=== PATIENT | female | born 1945 | race Caucasian/White ===

== ENCOUNTER 2017-11-06 07:14 | Outpatient (CLI) | payer MEDICARE ==
--- NOTE | 2017-11-13 12:52 | PFT ---
PATIENT HISTORY: HEIGHT: 64 IN WEIGHT: 180 SMOKER: NO HOW LON YRS PACKS PER DAY 1.5 PRODUCTIVE COUGH: LUNG DISEASE: PHYSICIAN INTERPRETATION FINAL REPORT: Registered Nurse Renal comments patient and good effort and cooperation FVC 1.99 (71%), FEV1 1.27 (65%), FEV1/FVC 0.68. TLC 4.05 (85%), RV 1.85 (95%). Diffusion 6.30 (36%). There is a reduction in the FEV1 and the FVC, consistent with an obstructive profile. There is a near significant improvement in the FEV1 following administration of bronchodilator. Expiratory limb of the flow volume loop is nonspecifically irregular, demonstrating a double hump. The inspiratory limb of the flow volume loop is perfectly normal. TLC and RV fall within the normal limits. Diffusion capacity is severely impaired. IMPRESSION: These pulmonary function studies are most consistent with moderate obstructive lung disease with near significant reversibility, and severe reduction in gas exchange. Registered Nurse Renal: ADE Airborne Operations Manager: ADE PETTY
== END 2017-11-06 07:15 | disposition home or self-care (01) ==
LOC: CP 07:14
PROVIDERS: ATTEND Family Medicine
DX: J45.909 Unspecified asthma, uncomplicated (principal)
CPT/HCPCS: 94060; 94727; 94729

== ENCOUNTER 2018-01-25 11:25 | Outpatient (CLI) | payer MEDICARE | END 2018-01-25 11:26 | disposition home or self-care (01) | LOC: BICMAMMO 11:25 | PROVIDERS: ATTEND Family Medicine | DX: Z12.31 Encounter for screening mammogram for malignant neoplasm of breast (principal) | CPT/HCPCS: 77063; 77067 ==

== ENCOUNTER 2018-05-26 08:20 | Emergency (ER) | payer MEDICARE ==
[2018-05-26] MEDS ORDERED: traMADol HCl 50 MG TAB ONE (09:38)
[2018-05-26] MEDS ORDERED: Ketorolac Tromethamine 60 MG/2 ML VIAL ONE (09:38)
--- NOTE | 2018-05-26 10:49 | RAD ---
RIGHT HIP 2 VIEWS: HISTORY: Right hip pain. FINDINGS: There are arthritic changes of the hip. There is spurring along the lateral margin of the acetabulum . There are no signs of fracture or dislocation. IMPRESSION: Mild to moderate arthritic changes of the right hip. POS: SILVESTRE
--- NOTE | 2018-05-26 10:50 | RAD ---
AP PELVIS: HISTORY: Right hip pain. FINDINGS: There are some arthritic changes of both hips and the lower lumbar spine. The pelvic ring is intact without evidence of fracture. IMPRESSION: No evidence of acute injury. POS: SILVESTRE
== END 2018-05-26 11:53 | disposition home or self-care (01) ==
LOC: ERS 08:20
DX: M54.31 Sciatica, right side (principal); E78.5 Hyperlipidemia, unspecified; I10 Essential (primary) hypertension; Z79.82 Long term (current) use of aspirin; Z79.899 Other long term (current) drug therapy
CPT/HCPCS: 72170; 96372; J1885

== ENCOUNTER 2018-06-17 10:22 | Outpatient (CLI) | payer MEDICARE ==
--- NOTE | 2018-06-17 13:48 | MRI ---
MRI LUMBAR SPINE PERFORMED WITHOUT CONTRAST ENHANCEMENT: Date: 06/17/18 HISTORY: Back pain and right leg pain. FINDINGS: The vertebral bodies are normal in height. Disc spaces all appear fairly well preserved. There are so me mild disc desiccation changes at L2-3, L3-4, and L4-5. Vertebral body hemangioma of L1 incidentall y noted. There is no significant periaortic adenopathy. The visualized portions of the kidneys appear unremark able. T12-L1: Unremarkable. L1-2: Unremarkable. L2-3: Mild facet and ligamentous hypertrophic change without canal or foraminal stenosis. L3-4: There is a right superior disc extrusion which is at the level of the right foramen. This coul d potentially impress on the exiting right L3 nerve root. There are degenerative facet changes also p resent. L4-5: Degenerative facet and ligamentous hypertrophic changes are seen. No significant canal or fora barney stenosis. L5-S1: Degenerative facet changes without canal or foraminal stenosis. IMPRESSION: Small right superior disc extrusion at the L3-4 level. This is at the level of the right L3 foramen. POS: SILVESTRE
== END 2018-06-17 10:23 | disposition home or self-care (01) ==
LOC: BICMRI 10:22
PROVIDERS: ATTEND Family Medicine
DX: M51.16 Intervertebral disc disorders with radiculopathy, lumbar region (principal); M25.551 Pain in right hip
CPT/HCPCS: 72148

== ENCOUNTER 2018-09-23 01:41 | Outpatient (CLI) | payer MEDICARE ==
[2018-09-23 10:33] LABS: Anion Gap 17 mmol/L (10-20); BUN (Urea Nitrogen) 16 mg/dL (9.8-20.1); Calc. Creatinine Clearance 0 mL/min (70-130); Calcium 9.5 mg/dL (7.8-10.44); Carbon Dioxide 22 mmol/L (23-31); Chloride 101 mmol/L (98-107); Estimated GFR-MDRD 64; Glucose 197 mg/dL (83-110); Potassium 3.6 mmol/L (3.5-5.1); Sodium 136 mmol/L (136-145)
--- NOTE | 2018-09-24 15:54 | EKG ---
Test Reason : Blood Pressure : / mmHG Vent. Rate : 103 BPM Atrial Rate : 103 BPM P-R Int : 154 ms QRS Dur : 082 ms QT Int : 312 ms P-R-T Axes : 063 020 020 degrees QTc Int : 408 ms Sinus tachycardia Otherwise normal ECG Confirmed by DIVINA PEDERSEN ([id number]) on 09/24/2018 3:54:36 PM Referred By: NARCISO Confirmed By:DIVINA PEDERSEN
== END 2018-09-23 01:42 | disposition home or self-care (01) ==
LOC: LABBT 01:41
PROVIDERS: ATTEND Neurological Surgery
DX: Z01.818 Encounter for other preprocedural examination (principal); M51.16 Intervertebral disc disorders with radiculopathy, lumbar region
CPT/HCPCS: 80048; 93005; 93010

== ENCOUNTER 2018-09-25 05:28 | Day surgery (SDC) | payer MEDICARE ==
[2018-09-23 09:25] VITALS: BMI 31.7
--- NOTE | 2018-09-24 22:15 | HP ---
HISTORY OF PRESENT ILLNESS: Ms. Betancourt is a very pleasant 73-year-old woman, referred to us today by Dr. Arnett for evaluation of right-sided back, anterior thigh and knee pain that began back in April 2018, which fits either an L3 or partial radiculopathy. She has had one epidural steroid injection at this level, which provided roughly 7 weeks of 70% to 80% relief. She has an MRI from [place] that reveals really a great looking lumbar spine with the exception of a right-sided disk extrusion at L3-L4 that protrudes in the right neuroforamen at this level, as well as compresses the descending L4 nerve root. She hopes to discuss surgical intervention if possible. PAST MEDICAL HISTORY: Significant for hypercholesterolemia, chronic pain, seasonal allergies, osteoarthritis, hypertension, osteoporosis. PAST SURGICAL HISTORY: Tonsillectomy, appendectomy, cholecystectomy, partial hysterectomy, oophorectomy, carotid endarterectomy, and knee replacement. CURRENT MEDICATIONS: 1. Hydrochlorothiazide. 2. Metformin. 3. Atorvastatin. 4. Gabapentin. 5. Lisinopril. ALLERGIES: PERCODAN. PHYSICAL EXAMINATION: GENERAL: The patient is alert and oriented x3. Gait is normal. No ataxia. Lower extremity exam is normal. Negative straight leg raise bilaterally. Negative Conor's test bilaterally. ASSESSMENT: Lumbar disk herniation and radiculopathy. PLAN: Dr. Luu met with the patient, reviewed imaging, and advocated for right L3 diskectomy. He explained to the patient the risks, benefits, and alternatives of the procedure. The patient expressed understanding and elected to move forward with surgery as discussed. I do believe that the patient is mentally competent and capable of making medical decisions for herself. We will move forward with the surgery as planned. Job ID: [id number]
[2018-09-25] MEDS ORDERED: Thrombin 5000 UNITS/5 ML VIAL ONE (06:21)
[2018-09-25] MEDS ORDERED: Bupivacaine HCl 0.5%/Epinephrine 1:200,000/PF 30 ml Vial ONE (06:21)
[2018-09-25] MEDS ORDERED: Fentanyl 100 MCG/2 ML VIAL ONE ×2 (06:47→08:38)
--- NOTE | 2018-09-25 11:31 | OP ---
DATE OF PROCEDURE: 09/25/2018 LEAD BURNER: Fransisco Manzano PA-C INDICATION: Pain. DIAGNOSIS: Right L3 radiculopathy. PROCEDURES PERFORMED: Right L3 diskectomy. ANESTHESIA: General. DESCRIPTION OF PROCEDURE: The patient was brought into the operating room and placed under general anesthesia. She was flipped from the supine to prone position on the operating room table. A linear incision was planned over the L3 segment. After prepping and draping and after an appropriate preoperative pause, the incision was created. The soft tissues were swept away from midline on the right. A self-retaining retractor was placed. A C-arm image was obtained to confirm the appropriate level. After confirming appropriate level with C-arm fluoroscopy, high-speed cutting drill bit as well as 2, 3, and 4 mm Kerrisons were used to perform a hemilaminectomy along L3 on the right side. This encompassed the medial aspect of the facet joint. I did identify and recover extruded disk fragment that had moved superiorly at the level of the foramen. At the end of the procedure, the L3 nerve root on the right side was well decompressed. The wound was then irrigated. Hemostasis was maintained throughout. The wound was then closed in anatomic layers and a pressure dressing was applied. There were no known procedural complications. Job ID: [id number]
[2018-09-25] MEDS ORDERED: Ketorolac Tromethamine 30 MG/ML VIAL ONE (13:54)
[2018-09-25] MEDS ORDERED: Rocuronium Bromide 10 MG/ML (10ML VIAL) ONE (13:54)
[2018-09-25] MEDS ORDERED: PROPOFOL 200 MG/20 ML VIAL ONE (13:54)
[2018-09-25] MEDS ORDERED: Dexamethasone 20 MG/5 ML VIAL ONE (13:54)
[2018-09-25] MEDS ORDERED: Glycopyrrolate 0.2 MG/ML 5 ML SYRINGE ONE (13:54)
[2018-09-25] MEDS ORDERED: Ondansetron PF 4 MG/2 ML Vial ONE (13:54)
[2018-09-25] MEDS ORDERED: Esmolol 100 MG/10 ML VIAL ONE (13:54)
[2018-09-25] MEDS ORDERED: ePHEDrine 50 MG/ML VIAL ONE (13:54)
[2018-09-25] MEDS ORDERED: PHENYLEPHRINE-NS 100 MCG/ML 10 ML SYRINGE ONE (13:54)
[2018-09-25] MEDS ORDERED: Lidocaine 1% PF 5 ML VIAL ONE (13:54)
== END 2018-09-25 11:00 | disposition home or self-care (01) ==
LOC: SDC 05:28
PROVIDERS: ATTEND Neurological Surgery
PROC: 01NB0ZZ Release Lumbar Nerve, Open Approach (ICD-10-PCS; principal; 2018-09-25)
PROC: 0SB20ZZ Excision of Lumbar Vertebral Disc, Open Approach (ICD-10-PCS; 2018-09-25)
DX: M51.16 Intervertebral disc disorders with radiculopathy, lumbar region (principal); M81.0 Age-related osteoporosis without current pathological fracture; M17.12 Unilateral primary osteoarthritis, left knee; E78.00 Pure hypercholesterolemia, unspecified; M19.90 Unspecified osteoarthritis, unspecified site; I10 Essential (primary) hypertension; J30.2 Other seasonal allergic rhinitis; Z87.891 Personal history of nicotine dependence; Z79.84 Long term (current) use of oral hypoglycemic drugs; Z79.899 Other long term (current) drug therapy; Z88.5 Allergy status to narcotic agent; Z88.8 Allergy status to other drugs, medicaments and biological substances
CPT/HCPCS: 76000; J0670; J1100; J1885; J2001; J2405; J2704; J3010; J3490

== ENCOUNTER 2019-01-28 09:30 | Outpatient (CLI) | payer MEDICARE ==
--- NOTE | 2019-01-28 10:33 | MMO ---
Bilateral MAMMO Bilat Screen [facility]. CLINICAL HISTORY: Patient is 73 years old and is seen for screening. The patient has no family history of breast cancer. The patient has no personal history of cancer. VIEWS: The views performed were: bilateral craniocaudal with tomosynthesis and bilateral mediolateral oblique with tomosynthesis. FILMS COMPARED: The present examination has been compared to prior imaging studies performed at [facility] on 08/06/2002, 11/15/2010, 11/17/2010 and 01/25/2018. MAMMOGRAM FINDINGS: There are scattered fibroglandular densities. There are stable benign appearing calcifications seen in both breasts. There are no suspicious masses, suspicious calcifications, or new areas of architectural distortion. IMPRESSION: THERE IS NO MAMMOGRAPHIC EVIDENCE OF MALIGNANCY. A ROUTINE FOLLOW-UP MAMMOGRAM IN 1 YEAR IS RECOMMENDED. THE RESULTS OF THIS EXAM WERE SENT TO THE PATIENT. ACR BI-RADS Category 2 - Benign finding MAMMOGRAPHY NOTE: 1. A negative mammogram report should not delay a biopsy if a dominant of clinically suspicious mass is present. 2. Approximately 10% to 15% of breast cancers are not detected by mammography. 3. Adenosis and dense breasts may obscure an underlying neoplasm.
== END 2019-01-28 09:31 | disposition home or self-care (01) ==
LOC: BICMAMMO 09:30
PROVIDERS: ATTEND Family Medicine
DX: Z12.31 Encounter for screening mammogram for malignant neoplasm of breast (principal)
CPT/HCPCS: 77063; 77067

== ENCOUNTER 2019-04-13 11:26 | Inpatient (IN) | payer MEDICARE ==
[2019-04-13] MEDS ORDERED: Ondansetron PF 4 MG/2 ML Vial ONE (12:00)
[2019-04-13] MEDS ORDERED: Fentanyl 100 MCG/2 ML VIAL ONE (12:00)
[2019-04-13] MEDS ORDERED: Lidocaine 1% PF 5 ML VIAL ONE (12:00)
--- NOTE | 2019-04-13 12:27 | CT ---
Exam: CT brain PROVIDED CLINICAL HISTORY: Trauma COMPARISON: 07/07/2014 FINDINGS: The ventricular system is normal in size and morphology. No evidence for intracranial hemorrhage or mass effect. The extracranial soft tissues and osseous structures demonstrate no evidence for an acute abnormality. Chronic microvascular ischemic changes involving the cerebral white matter are red emonstrated. IMPRESSION: No evidence for intracranial hemorrhage or mass effect.
--- NOTE | 2019-04-13 12:34 | CT ---
EXAM: CT cervical spine PROVIDED CLINICAL HISTORY: Trauma. Patient fell approximately 5 to 6 ft and landed on back. Patient hit head. TECHNIQUE: Contiguous axial CT images are obtained through the cervical spine from the skull base to the C7-T1 l evel. Sagittal and coronal reformatted images are provided. COMPARISON: None FINDINGS: Degenerative changes are seen in the cervical spine with prominent osteophytes anteriorly at the C4-5 , C5-6, and C6-7 levels. Prominent facet hypertrophic changes are seen on the left at the C3-4 level which in combination with uncinate process hypertrophy on the left results in moderate to sever e left-sided neural foraminal narrowing. There is moderate right-sided neural foraminal narrowing at this level. Disc osteophyte complex at the C5-6 level results in mild right and moderate left-side d neural foraminal narrowing with narrowing of the ventral subarachnoid space and likely flattening of the anterior aspect of the spinal cord. Disc osteophyte complex at the C6-7 level eccentric to the left results in narrowing of the ventral subarachnoid space and effacement of the left anterolateral aspect of the spinal cord. No fracture or subluxation is seen involving the cervical spine. No prevertebral soft tissue swelling apparent. Limited visualized lung apices are clear. A calcification is seen in the left lobe of thyroid gland. No thyroid nodule is seen. Vascular calcifications are seen in the carotid arteries. Surgical clips are seen in the left aspect of the neck. IMPRESSION: Degenerative changes in the cervical spine without evidence of a fracture or subluxation.
--- NOTE | 2019-04-13 12:52 | RAD ---
EXAM: XR Shoulder Lt 3 View STANDARD PROVIDED CLINICAL HISTORY: Pain FINDINGS: There is no evidence for fracture or other acute osseous abnormality. Alignment appears anatomic. Vera nt spaces appear preserved. IMPRESSION: No evidence for an acute osseous abnormality. If there is persistent clinical concern, conservative m anagement and follow-up imaging advised.
[2019-04-13] MEDS ORDERED: ISOVUE-370 76%-LOCM 1 ML ONE (12:53)
--- NOTE | 2019-04-13 12:55 | CT ---
EXAM: CT of the chest with IV contrast CT of the abdomen and pelvis with IV contrast HISTORY: Trauma. Patient fell off a ladder from a height of 5 to 6 ft. Injury after fall. COMPARISON: CT abdomen and pelvis on 05/14/2015. FINDINGS: CT CHEST: Mediastinum: Heart is normal in size without focal cardiac abnormality. No hilar or mediastinal lymph adenopathy. A tiny subcentimeter hypodense nodule is seen in the right lobe of the thyroid gland. There is small amount of heterogeneous material in the right aspect of the upper thoracic trachea pro bably related to secretions. Vessels: Vascular calcifications are seen in the coronary arteries and involving the thoracic aorta. There are no findings to suggest an aortic injury. Lungs: There is dependent atelectasis bilaterally. No consolidation or pulmonary nodule is identified . Pleural space: No pneumothorax or pleural effusion. Osseous structures: There is a mildly angulated and fracture involving the lateral left sec ond rib with nondisplaced fracture involving the lateral left sixth rib. There is slight cortical irregularities involving the lateral left third through fifth ribs which also likely represent subtle nondisplaced fractures. Remote right lateral rib fractures are present. An oblique and mildly as well as slightly comminuted fracture is seen involving the central and left aspect of th e manubrium. Subcutaneous soft tissue swelling is seen anterior to the sternoclavicular joint. A tiny amount of fluid is seen in a substernal location at the level of the manubrial fracture. However , a well-defined fat plane is seen between the fluid and the adjacent vascular structures. Chest wall: Subcutaneous soft tissue swelling anterior to the left sternoclavicular joint. CT ABDOMEN/PELVIS: Liver: Within normal limits. Gallbladder: Not visualized and likely surgically absent. This is a stable finding. Spleen: Within normal limits. Pancreas: Within normal limits. Adrenal glands: Within normal limits. Kidneys: Within normal limits. Urinary bladder: Within normal limits. Vessels: Vascular calcifications are seen in the abdominal aorta involving the iliac arteries. There are no findings to suggest an aortic injury. Bowel: Colonic diverticulosis is noted. Loops of small bowel are normal in caliber. Pelvis: No focal mass or abnormality. Reproductive organs: Evidence of hysterectomy. Peritoneum: No free air or free fluid. Retroperitoneum: No lymphadenopathy. Osseous structures: No fracture is appreciated. There is no dislocation involving either hip. THORACIC AND LUMBAR SPINE: No fracture or subluxation is seen. No paravertebral soft tissue swelling is present. A right laminot milagro defect is seen at the L3-4 level. Mild right convex curvature of the thoracic spine is noted. Mild degenerative changes are seen in the spine. No fracture or subluxation is visualized involving t he thoracic IMPRESSION: 1. Fracture involving the left manubrium with adjacent small amount of hemorrhage and stranding. Ther e are no findings to suggest an aortic injury. 2. Left-sided rib fractures with mild angulation and separation of fracture fragments involving the l eft second rib. 3. No acute findings are seen in the abdomen or pelvis. 4. Tiny subcentimeter hypodense nodule right lobe of thyroid gland further characterized on this stud y. 5. Above findings discussed Dr. Cutler in the emergency department on 04/13/2019 at 1251 hours.
[2019-04-13] MEDS ORDERED: Ketorolac Tromethamine 30 MG/ML VIAL ONE (13:20)
[2019-04-13] MEDS ORDERED: Dextrose 5% in Water 1,000 ML IV PRN (13:27)
[2019-04-13] MEDS ORDERED: Dextrose 50% Abboject 50 ML SYRINGE SLOW IVP PRN (13:27)
[2019-04-13] MEDS ORDERED: Insulin Regular 300 UNITS/3 ML VIAL SC PRN (13:27)
[2019-04-13] MEDS ORDERED: Rib Fracture Protocol PO SCH (13:30)
[2019-04-13] MEDS ORDERED: Pantoprazole 40 MG VIAL IVP SCH (13:30)
[2019-04-13] MEDS ORDERED: Sodium Chloride 0.9% (PF) 10 ML VIAL FS PRN (13:34)
[2019-04-13 13:41] LABS: #Eosinphils 0.1 thou/uL (0.0-0.7); #Lymphocytes 1.3 thou/uL (1.20-3.40); #Monocytes 0.5 thou/uL (0.11-0.59); #Neutrophils 12.2 thou/uL (1.40-6.50); %Basophils 0.1 % (0.0-1.0); %Eosinophils 0.8 % (0.0-10.0); %Monocytes 3.3 % (0.0-10.0); %Neutrophils 86.7 % (42.0-75.0); Hemoglobin 11.6 g/dL (12.0-16.0); Mean Corpuscular HGB CONC 35.4 g/dL (32.0-36.0); Mean Corpuscular Hemoglobin 30.2 pg (27.0-31.0); Mean Corpuscular Volume 85.4 fL (78.0-98.0); Mean Platelet Volume 7.1 fL (7.4-10.4); Platelet Count 231 thou/uL (130-400); Red Blood Cell (RBC) Count 3.83 mill/uL (4.20-5.40)
[2019-04-13 13:42] LABS: PTT 25.1 SEC (22.9-36.1); Prothrombin Time 13.5 SEC (12.0-14.7)
[2019-04-13] MEDS ORDERED: Morphine 4 MG/ML VIAL ONE (13:42)
[2019-04-13] MEDS ORDERED: Cyclobenzaprine 10 MG TAB PO PRN (13:45)
[2019-04-13 13:58] LABS: ALT (SGPT) 11 U/L (8-55); AST (SGOT) 17 U/L (5-34); Albumin 4.3 g/dL (3.4-4.8); Alkaline Phosphatase 80 U/L (40-150); Anion Gap 13 mmol/L (10-20); BUN (Urea Nitrogen) 12 mg/dL (9.8-20.1); Bilirubin, Total 0.6 mg/dL (0.2-1.2); Calc. Creatinine Clearance 0 mL/min (70-130); Carbon Dioxide 25 mmol/L (23-31); Chloride 103 mmol/L (98-107); Estimated GFR-MDRD 60; Globulin 2.7 g/dL (2.4-3.5); Glucose 140 mg/dL (83-110); Potassium 4.5 mmol/L (3.5-5.1); Sodium 136 mmol/L (136-145)
[2019-04-13] MEDS ORDERED: Acetaminophen 1,000 MG in Premix Bag 1 BAG IVPB SCH (14:00)
--- NOTE | 2019-04-13 14:23 | HP ---
HISTORY OF PRESENT ILLNESS: Ms. Betancourt is a 74-year-old female, coming to evaluation of left chest wall pain after a fall. The patient reports falling from 5 to 6 feet, landed on her back on the left side, hit her head on the ground. She reports no loss of consciousness at that time. Upon arrival in the ER, the patient's GCS is 15, complained of left chest pain, vital signs stable. PAST MEDICAL HISTORY: The patient has a past medical history of hypertension, hyperlipidemia, and COPD with a rescue inhaler. PAST SURGICAL HISTORY: Appendectomy, left knee replacement, hysterectomy, gallbladder, tonsillectomy. SOCIAL HISTORY: The patient lives at home with family. Denies alcohol. Denies drug use. The patient quit smoking 15 years ago. CURRENT MEDICATION: lisinopril 10 mg daily aspirin 365mg daily Atorvastatin 10 mg daily Hydrochlorothiazide 12.5 mg daily REVIEW OF SYSTEMS: Noncontributory except per HPI. PHYSICAL EXAMINATION: GENERAL: The patient is lying down in bed with moderate acute distress due to pain of the left rib cage. VITAL SIGNS: Heart rate 99, blood pressure 110/72, respiratory rate 16, temperature 98, O2 saturation 94% on room air. Pain is 10/10. HEENT: Left posterior scalp laceration, underwent repair by Dr. Cutler and stopped bleeding. Pupils 3 mm, round, reactive to light. Extraocular muscle normal. Face atraumatic, no bruising. NECK: Trachea midline. No tender to palpation. No bruising. CHEST: Left chest is little tender to touch. No obvious bruising. Diminished rising due to pain. LUNGS: Clear bilaterally. HEART: Regular rate and rhythm. ABDOMEN: Symmetric. No deformity. No tender to palpation. No bruising. PELVIS: Stable. EXTREMITIES: Neurovascularly intact x4. NEUROLOGIC: No focal neurological deficits. ASSESSMENT: 1. Status post mechanical fall from the height of 5 to 6 feet. 2. Left rib fracture, second and sixth rib fracture. 3. History of hypertension, chronic obstructive pulmonary disease, and hyperlipidemia. PLAN: The patient will be admitted to surgical floor. Initiate on pain control. The patient will be put on rib fracture protocol p.o. The patient will be initiated on DVT and gastritis prophylaxis. The patient will be working with PT/OT tomorrow. The patient will be put on trauma bowel regiment. Resume all home medications. Job ID: [id number] [facility]
[2019-04-13] MEDS ORDERED: Gabapentin 100 MG CAP PO SCH (15:00)
[2019-04-13 15:05] LABS: Bilirubin Negative (Negative); Blood, Urine Negative (Negative); Clarity Clear (Clear); Glucose, Urine (Dipstick) Normal (Negative); Leukocyte Negative Leu/uL (Negative); Nitrite Negative (Negative); Protein, Urine (Dipstick) Negative (Neg-Trace); Urobilinogen Normal mg/dL (Less than 2)
[2019-04-13 16:56] VITALS: BMI 32.8
[2019-04-13] MEDS: Ibuprofen 600 MG TAB PO SCH ×2 (17:11→22:40)
[2019-04-13] MEDS ORDERED: Ketorolac Tromethamine 30 MG/ML VIAL IVP SCH (18:00)
[2019-04-13] MEDS: traMADol HCl 50 MG TAB PO SCH (18:28)
[2019-04-13] MEDS: Acetaminophen 500 MG TAB PO SCH (20:05)
[2019-04-13] MEDS: Senokot S 8.6-50 MG TAB PO SCH (20:06)
[2019-04-13] MEDS: Gabapentin 300 MG CAP PO SCH (20:06)
[2019-04-13] MEDS: Atorvastatin Calcium 10 MG TAB PO SCH (20:06)
[2019-04-13] MEDS ORDERED: Lisinopril 10 MG TAB PO SCH (21:00)
[2019-04-13] MEDS ORDERED: OSTERA PO SCH (21:00)
[2019-04-13] MEDS ORDERED: PATIENT'S HOME MEDICATION PO SCH (21:00)
[2019-04-13] MEDS ORDERED: traMADol HCl 50 MG TAB PO PRN (22:27)
[2019-04-14] MEDS: traMADol HCl 50 MG TAB PO SCH ×5 (00:16→23:11)
[2019-04-14] MEDS: Acetaminophen 500 MG TAB PO SCH ×4 (00:51→20:47)
[2019-04-14] MEDS ORDERED: Sodium Chloride 0.9% 500 ML IV SCH ×2 (04:45→21:00)
[2019-04-14 06:09] LABS: #Eosinphils 0.1 thou/uL (0.0-0.7); #Lymphocytes 1.6 thou/uL (1.20-3.40); #Monocytes 0.5 thou/uL (0.11-0.59); %Basophils 0.6 % (0.0-1.0); %Eosinophils 1.3 % (0.0-10.0); %Monocytes 6.7 % (0.0-10.0); %Neutrophils 69.5 % (42.0-75.0); Hemoglobin 9.8 g/dL (12.0-16.0); Mean Corpuscular HGB CONC 34.4 g/dL (32.0-36.0); Mean Corpuscular Hemoglobin 29.6 pg (27.0-31.0); Mean Corpuscular Volume 85.9 fL (78.0-98.0); Mean Platelet Volume 6.7 fL (7.4-10.4); Platelet Count 184 thou/uL (130-400); RBC Distribution Width 12.9 % (11.5-14.5); White Blood Cell (WBC) Count 7.2 thou/uL (4.8-10.8)
[2019-04-14] MEDS ORDERED: Hydrocortisone Sod Succ/PF 100 mg/2 ml Vial IVP SCH (06:15)
[2019-04-14] MEDS: Sodium Chloride 0.9% 1,000 ML IV SCH ×2 (06:21→20:48)
[2019-04-14 06:31] LABS: Anion Gap 10 mmol/L (10-20); BUN (Urea Nitrogen) 16 mg/dL (9.8-20.1); Calc. Creatinine Clearance 65 mL/min (70-130); Calcium 8.3 mg/dL (7.8-10.44); Carbon Dioxide 27 mmol/L (23-31); Chloride 103 mmol/L (98-107); Estimated GFR-MDRD 54; Glucose 154 mg/dL (83-110); Magnesium 1.8 mg/dL (1.6-2.6); Phosphorus 4.8 mg/dL (2.3-4.7); Potassium 4.3 mmol/L (3.5-5.1); Sodium 136 mmol/L (136-145)
[2019-04-14] MEDS: Ibuprofen 600 MG TAB PO SCH ×3 (07:16→20:48)
[2019-04-14] MEDS ORDERED: Sodium Chloride 0.9% 500 ML IVPB SCH (07:45)
--- NOTE | 2019-04-14 08:30 | RAD ---
CHEST 1 VIEW: HISTORY: Rib fractures. COMPARISON: CT of prior day. FINDINGS: No further displacement of the left-sided rib fractures. Mild atelectasis in the left lung base. No pneumothorax is appreciated. Old left midclavicular fracture. Calcifications of the transverse aorta. Heart size is similar. IMPRESSION: No further displacement of left-sided rib fractures. No significant pneumothorax. POS: CET
[2019-04-14] MEDS: Gabapentin 300 MG CAP PO SCH ×4 (08:43→20:48)
[2019-04-14] MEDS: Senokot S 8.6-50 MG TAB PO SCH ×2 (08:43→20:48)
[2019-04-14] MEDS: Polyethylene Glycol 3350 17 GM Packet PO SCH (08:44)
[2019-04-14] MEDS ORDERED: Enoxaparin Sodium 30 MG/0.3 ML SYRINGE SC SCH (09:00)
[2019-04-14] MEDS ORDERED: Prevnar 13-Val Conj/PF 0.5 ML SYRINGE IM ONE (09:00)
[2019-04-14] MEDS ORDERED: Hydrochlorothiazide 25 MG TAB PO SCH (09:00)
[2019-04-14] MEDS: Hydrochlorothiazide 25 MG TAB PO SCH (09:47)
[2019-04-14] MEDS: Hydrocortisone Sod Succ/PF 100 mg/2 ml Vial IVP SCH ×3 (13:18→23:10)
--- NOTE | 2019-04-14 14:52 | PRG ---
DATE OF SERVICE: 04/14/2019 SUBJECTIVE: Ms. Betancourt is 74 years old female, who came in after 5 to 6 feet fall, landed on her back on the left side. She sustained left rib fracture from 2 through 6. The patient also has a history of hypertension, COPD, and hyperlipidemia. Last night, the patient had a blood pressure drop in the range of 80. She got bolus and checked her cortisone level. Her cortisone level was low. She got treated for adrenal insufficiency this morning. Her blood pressure is getting better. She tolerated regular diet. She is able to work with PT/OT and she walked around the floor today. Her spirometry up to 2500. Pain is manageable. OBJECTIVE: GENERAL: The patient is lying down in bed, comfortable with no acute distress. VITAL SIGNS: Temperature 99, heart rate 85, respiratory rate 12, O2 saturation 94% on 2 L of cannula, blood pressure 94/60. LUNGS: Clear bilaterally. HEART: Regular rate and rhythm. ABDOMEN: Soft, nondistended. EXTREMITIES: Neurovascularly intact x4. The patient's range of motion normal x4. NEUROLOGIC: No focal neurology deficits. ASSESSMENT: 1. Status post mechanical fall from 5 to 6 feet. 2. Left rib fracture, 2 through 6. 3. History of hypertension, chronic obstructive pulmonary disease, and hyperlipidemia. PLAN: Plan will be to continue supportive care. Continue pain control. Continue pulmonary toilet. The patient will be working with PT/OT. Anticipate discharge in next 24 to 48 hours. Job ID: [id number]
[2019-04-14] MEDS: Atorvastatin Calcium 10 MG TAB PO SCH (20:48)
[2019-04-14] MEDS ORDERED: Lisinopril 10 MG TAB PO SCH (21:00)
--- NOTE | 2019-04-14 23:21 | RAD ---
Exam: Chest one view HISTORY:New onset atrial fibrillation Comparison: 04/14/2019 at 7:02 AM FINDINGS: Cardiac silhouette: Normal Aorta: Atherosclerosis of the aortic knob Pulmonary vessels: Normal Costophrenic angles: Persistent obscuration of the left hemidiaphragm and blunting of left costophren ic angle LUNGS: No masses or consolidation. Pneumothorax: None Osseous abnormalities: Old left clavicle fracture. Anterior second and posterior third left rib fract ures are noted. IMPRESSION: 1. Redemonstration of left rib fractures. No pneumothorax. 2. Persistent obscuration of the left hemidiaphragm.
--- NOTE | 2019-04-15 00:16 | PRG ---
DATE OF SERVICE: 04/14/2019 SUBJECTIVE: The patient at time of my exam was on the surgical floor. She is status a post fall in which she sustained multiple left-sided rib fractures, specifically ribs 2 through 6. The patient has been doing well today, worked with Physical and Occupational Therapy. She has been able to get in and out of bed unassisted. She is drawing consistently greater than 2000 on her incentive spirometry. During my exam, the nurse was taking her vitals and it was noted that her blood pressure was difficult to obtain and her heart rate was rapid. Further examination showed her heart rate was tachycardic with irregularity. We obtained a 12-lead EKG, which revealed atrial fibrillation with rapid ventricular response. The patient was asymptomatic. She felt no chest discomfort or shortness of breath. No syncopal type symptoms. The patient did inform us that she has periods of this before that her primary care doctor has been aware of. This sounds consistent with paroxysmal atrial fibrillation. OBJECTIVE: VITAL SIGNS: The patient is afebrile. Oxygen saturation is 90% on room air. LUNGS: Clear to auscultation bilaterally with good inspiratory and expiratory effort. HEART: Again is tachy, irregular. ABDOMEN: Soft, nontender with active bowel sounds. EXTREMITIES: Neurovascularly intact x4. ASSESSMENT/PLAN: 1. Status post fall from 5-6 feet. 2. Left ribs 2 through 6 fracture. 3. Atrial fibrillation with rapid ventricular response. 4. History of hypertension. 5. History of chronic obstructive pulmonary disease. 6. History of hyperlipidemia. PLAN: Plan will be to move the patient to the telemetry unit. We will obtain a BNP. We will do a chest x-ray and also do a bladder scan as the patient reportedly has not voided recently. Once the patient moves to the telemetry unit, we will reassess her to see if she requires pharmacological agents to reduce her rate. Job ID: [id number]
[2019-04-15] MEDS: Acetaminophen 500 MG TAB PO SCH ×3 (02:46→14:03)
[2019-04-15 05:10] LABS: #Lymphocytes 1.4 thou/uL (1.20-3.40); #Monocytes 0.5 thou/uL (0.11-0.59); #Neutrophils 7.9 thou/uL (1.40-6.50); %Eosinophils 0.2 % (0.0-10.0); %Lymphocytes 14.4 % (21.0-51.0); %Monocytes 5.2 % (0.0-10.0); %Neutrophils 80.2 % (42.0-75.0); Hemoglobin 9.2 g/dL (12.0-16.0); Mean Corpuscular HGB CONC 34.2 g/dL (32.0-36.0); Mean Corpuscular Hemoglobin 29.8 pg (27.0-31.0); Mean Corpuscular Volume 87.1 fL (78.0-98.0); Platelet Count 186 thou/uL (130-400); Red Blood Cell (RBC) Count 3.09 mill/uL (4.20-5.40); White Blood Cell (WBC) Count 9.8 thou/uL (4.8-10.8)
[2019-04-15] MEDS: traMADol HCl 50 MG TAB PO SCH ×2 (05:11→11:32)
[2019-04-15] MEDS: Ibuprofen 600 MG TAB PO SCH ×2 (05:12→14:04)
[2019-04-15] MEDS: Hydrocortisone Sod Succ/PF 100 mg/2 ml Vial IVP SCH ×2 (05:12→11:33)
[2019-04-15 05:48] LABS: Anion Gap 12 mmol/L (10-20); BUN (Urea Nitrogen) 12 mg/dL (9.8-20.1); Calc. Creatinine Clearance 70 mL/min (70-130); Calcium 8.4 mg/dL (7.8-10.44); Carbon Dioxide 23 mmol/L (23-31); Chloride 107 mmol/L (98-107); Estimated GFR-MDRD 58; Glucose 173 mg/dL (83-110); Magnesium 1.9 mg/dL (1.6-2.6); Phosphorus 3.7 mg/dL (2.3-4.7); Potassium 4.4 mmol/L (3.5-5.1); Sodium 138 mmol/L (136-145)
[2019-04-15] MEDS ORDERED: PHOS-NAK 1 PKT PACK PO SCH (07:15)
[2019-04-15] MEDS ORDERED: Magnesium 2 GM/50 ML 2 GM in Premix Bag 1 BAG IVPB SCH (07:45)
[2019-04-15] MEDS: Polyethylene Glycol 3350 17 GM Packet PO SCH (08:50)
[2019-04-15] MEDS: Gabapentin 300 MG CAP PO SCH ×3 (08:52→16:03)
[2019-04-15] MEDS: Senokot S 8.6-50 MG TAB PO SCH (08:52)
[2019-04-15] MEDS: Hydrochlorothiazide 25 MG TAB PO SCH (08:53)
[2019-04-15] MEDS ORDERED: Enoxaparin Sodium 40 MG/0.4 ML SYRINGE SC SCH (09:00)
[2019-04-15 15:56] VITALS: BP 119/61; TEMP 98.3
--- NOTE | 2019-04-16 01:36 | DIS ---
DATE OF ADMISSION: 04/13/2019 DATE OF DISCHARGE: 04/15/2019 ADMISSION DIAGNOSIS: Mechanical fall from 5 feet, left ribs 2 through 6 fracture. DISCHARGE DIAGNOSES: Mechanical fall from 5 feet, left ribs 2 through 6 fracture; acute adrenal insufficiency. CONSULTING PHYSICIAN: None. PROCEDURES PERFORMED: None. HOSPITAL COURSE: The patient is a 74-year-old female, who presented to the emergency department via EMS after a fall from 5 to 6 feet. She was found to have left-sided ribs 2 through 6 fracture and she was admitted for pain control. She did develop some hypotension and was found to have acute adrenal insufficiency. The patient also had a laceration to her posterior scalp. On day two, the patient developed paroxysmal atrial fibrillation, which resolved on its own. The patient does have a history of paroxysmal atrial fibrillation. Chest x-ray and additional workup were negative. The patient worked with Physical and Occupational Therapy. Pain was well controlled. She was able to ambulate with minimal assistance. She was discharged home with family assistance with followup in 10 days of the chest x-ray and also for suture removal to the scalp. DISCHARGE DISPOSITION: Home. DISCHARGE CONDITION: Satisfactory. PHYSICAL EXAMINATION: VITAL SIGNS: Temperature 98.4, pulse 98, respirations 16, oxygen saturation 91% on room air, and blood pressure 101/58. GENERAL: Well-appearing elderly female, sitting up in bed with no signs of acute distress. PULMONARY: Equal chest rise and fall. Clear breath sounds bilaterally. No signs of acute respiratory distress. The patient is pulling 1500 on her SI. ABDOMEN: Soft, nontender, and nondistended. CARDIAC: Regular rate and rhythm. No murmurs, gallops, or rubs. EXTREMITIES: 2+ pulses in all extremities. No significant swelling noted. Gross motor and sensation are intact. DISCHARGE INSTRUCTIONS: The patient was discharged home. Activity as tolerated with a regular diet. She is to use her incentive spirometer. DISCHARGE MEDICATIONS: Include: 1. Tylenol. 2. Aspirin. 3. Atorvastatin. 4. Vitamin D. 5. Gabapentin. 6. Hydrochlorothiazide. 7. Ibuprofen. 8. Lisinopril. 9. MiraLAX. 10. Tramadol. FOLLOWUP INSTRUCTIONS: The patient is to follow up with Dr. Holden on April 22, 2019, at 2:30 p.m. She will have a chest x-ray and she will also have staple removal. She is also to follow up with her PCP this week for paroxysmal atrial fibrillation. This is merely a summary of the patient's hospitalization. For full details, please see her medical record in its entirety. Job ID: [id number]
== END 2019-04-15 16:17 | disposition home or self-care (01) | DRG 184 ==
LOC: ERS 11:26 → SURG B 13:00 → 2NO 04-14 22:35
PROVIDERS: ADMIT Surgery; ATTEND Surgery
DX: S22.42XA Multiple fractures of ribs, left side, initial encounter for closed fracture (principal); E27.40 Unspecified adrenocortical insufficiency; W17.89XA Other fall from one level to another, initial encounter; I95.9 Hypotension, unspecified; S01.01XA Laceration without foreign body of scalp, initial encounter; Z96.652 Presence of left artificial knee joint; E78.5 Hyperlipidemia, unspecified; I48.0 Paroxysmal atrial fibrillation; J44.9 Chronic obstructive pulmonary disease, unspecified; I10 Essential (primary) hypertension; Z79.01 Long term (current) use of anticoagulants; Z90.49 Acquired absence of other specified parts of digestive tract; Z90.710 Acquired absence of both cervix and uterus
CPT/HCPCS: 12001; 36415; 36416; 70450; 71045; 71260; 72125; 74177; 80048; 80053; 81003; 82533; 83735; 83880; 84100; 85025; 85610; 85730; 93005; 93010; 94640; 96361; 96365; 96375; J0131; J1650; J1720; J1885; J2001; J2270; J2405; J3010; J3475; J7620; Q9966

== ENCOUNTER 2019-04-21 09:51 | Outpatient (CLI) | payer MEDICARE ==
--- NOTE | 2019-04-21 10:11 | RAD ---
EXAM: XR Chest Pa Lat STANDARD PROVIDED CLINICAL HISTORY: Rib fracture COMPARISON: 04/14/2019 FINDINGS: Cardiac and mediastinal silhouette are unchanged in appearance. Development of small amount of left p leural fluid. Prominence of the pulmonary vasculature. Displaced left-sided rib fractures again seen. No evidence for pneumothorax. IMPRESSION: Development of small left pleural fluid. Prominence of the pulmonary vasculature.
== END 2019-04-21 09:52 | disposition home or self-care (01) ==
LOC: BICRAD 09:51
PROVIDERS: ATTEND Physician Assistant
DX: S22.39XA Fracture of one rib, unspecified side, initial encounter for closed fracture (principal)
CPT/HCPCS: 71046

== ENCOUNTER 2019-12-12 12:13 | Outpatient (CLI) | payer MEDICARE, OTHER ==
[~2019-12-12 12:13] MED LIST: Magnevist 469MG/ML 20 ML VIAL ONE
--- NOTE | 2019-12-12 15:27 | MRI ---
MRI OF THE LUMBAR SPINE WITH AND WITHOUT CONTRAST: 12/12/19 INDICATION: History of lumbar radiculopathy and right hip pain that radiates into the right leg for the last six weeks; worsening after a fall three weeks ago. History of lumbar surgery in September 2018. COMPARISON: Prior MR of the lumbar spine without contrast performed at [facility] d ated 06/17/18. CT of the chest, abdomen and pelvis dated 04/13/19. FINDINGS: There has been an interval chronic appearing wedge compression abnormality at T11. This is new from a comparison CT dated 04/13/19. No residual edema is seen on the STIR images within this compression ab normality. There is a stable hemangioma within L1. There is post procedural change of a hemilaminecto my at L3-4. The visualized aspects of the retroperitoneum appear within normal limits. No lymphadenopathy or free fluid is identified. At the L5-S1 level, there is mild facet joint degenerative change but no appreciable central canal or neural foraminal narrowing. At L4-5, there is mild facet joint degenerative change and a broad based bulge that induces stable mi ld bilateral neural foraminal narrowing. At L3-4, there are hemilaminectomy changes. Previously seen right paracentral disc extrusion is no lo nger seen and suspected to have been surgically removed. There is a persistent, asymmetric to the rig ht, broad based disc bulge. There is worsening severe right neural foraminal narrowing from the prior examination. There is persistent mild left neural foraminal narrowing. On the postcontrast images th ere is enhancement of the material filling the inferior aspect of the right neural foramina likely in dicative of some epidural fibrosis along the inferior aspect of the right neural foramina rather than a recurrent disc herniation. At L2-3, there is a broad based bulge but no appreciable central canal or neural foraminal narrowing. At L1-2, there is no appreciable central canal or neural foraminal narrowing. At T12-L1, there is a mild broad based bulge but no appreciable central canal or neural foraminal imelda rowing. Postprocedural images demonstrates some increased epidural enhancement seen involving the right L3-4 neural foraminal as above. No abnormal intrathecal enhancement is demonstrated. There is some pulsati on artifact that projects over the neural foramen on the axial postcontrast series on image 23 of ser ies 10 from the IVC. IMPRESSION: 1. Postprocedural change of a hemilaminectomy at L3-4 with removal of the previously seen right paracentral disc extrusion. There is some low T1 and T2 signal intensity material filling the right L 3-4 neural foramina with enhancement along the inferior aspect of the neural foramina most suspicious for prominent amount of epidural fibrosis. The extent of the fibrosis does fill majority of the neur al foraminal with severe narrowing of the right L3-4 neural foramina. There is persistent mild left n eural foramina narrowing at L3-4 due to the broad based disc bulge and facet degenerative change. 2. Mild bilateral neural foraminal narrowing at L4-5 is stable appearing. 3. Interval change wedge compression abnormality of T11. POS: [facility]
== END 2019-12-12 12:14 | disposition home or self-care (01) ==
LOC: BICMRI 12:13
PROVIDERS: ATTEND Neurological Surgery
DX: M47.26 Other spondylosis with radiculopathy, lumbar region (principal); M51.16 Intervertebral disc disorders with radiculopathy, lumbar region; M48.061 Spinal stenosis, lumbar region without neurogenic claudication; R93.7 Abnormal findings on diagnostic imaging of other parts of musculoskeletal system; G95.29 Other cord compression; Z98.890 Other specified postprocedural states
CPT/HCPCS: 72158; 82565; A9579

== ENCOUNTER 2020-01-23 05:32 | Outpatient (CLI) | payer MEDICARE, OTHER ==
[2020-01-23 12:50] LABS: Anion Gap 15 mmol/L (10-20); BUN (Urea Nitrogen) 19 mg/dL (9.8-20.1); Calc. Creatinine Clearance 0 mL/min (70-130); Carbon Dioxide 24 mmol/L (23-31); Chloride 106 mmol/L (98-107); Estimated GFR-MDRD 47; Glucose 136 mg/dL (83-110); Potassium 4.6 mmol/L (3.5-5.1); Sodium 140 mmol/L (136-145)
[2020-01-24 12:15] LABS: SARS-CoV-2 MS2 Positive; SARS-CoV-2 N Gene Negative; SARS-CoV-2 S Gene Negative; SARS-CoV-2 orf1ab Negative
== END 2020-01-23 05:33 | disposition home or self-care (01) ==
LOC: LABBT 05:32
PROVIDERS: ATTEND Neurological Surgery
DX: Z01.812 Encounter for preprocedural laboratory examination (principal); Z11.59 Encounter for screening for other viral diseases; M54.16 Radiculopathy, lumbar region
CPT/HCPCS: 80048; U0003; 87635

== ENCOUNTER 2020-01-26 06:15 | Day surgery (SDC) | payer MEDICARE ==
[2020-01-20 12:11] VITALS: BMI 30.9
[2020-01-26] MEDS ORDERED: EPINEPHrine 1 MG/ML AMP ONE (06:30)
[2020-01-26] MEDS ORDERED: Thrombin 5000 UNITS/5 ML VIAL ONE (06:30)
[2020-01-26] MEDS ORDERED: Bupivacaine PF 0.5% 30 ML VIAL ONE (06:30)
--- NOTE | 2020-01-26 06:50 | HP ---
HISTORY OF PRESENT ILLNESS: Ms. Betancourt is a 74-year-old woman who is known to us for prior lumbar diskectomy in the beginning of last year. Reports to me that around October of this year, she started to feel a searing pain in the right lower back radiating into the right hip and anterior thigh. She states she initially was evaluated by primary care who started her on gabapentin and [place] as well as started a home exercise program which she is unable to complete secondary to pain. She has x-ray of the right hip, which shows appropriate mild DJD, but nothing that would fit the description of pain. She describes pain and burning right thigh much in a way that it was before surgery last year. She states that the pain became severe enough that she is relying upon a walker and a new MRI at [facility] reveals a right-sided L3 disk that encroaches upon the foramen as well. PHYSICAL EXAMINATION: Deferred secondary to [facility]-19 Telehealth visit. PAST MEDICAL HISTORY: Hypertension, coronary arterial disease, hyperlipidemia, and diabetes. CURRENT MEDICATIONS: 1. Gabapentin. 2. Lisinopril. 3. Hydrochlorothiazide. 4. Januvia. 5. Eliquis. 6. Atorvastatin. 7. Vitamin D. PAST SURGICAL HISTORY: Tonsillectomy, appendectomy, hysterectomy, cholecystectomy, knee replacement on the left, lumbar diskectomy, and left carotid endarterectomy. ALLERGIES: NO KNOWN DRUG ALLERGIES. ASSESSMENT: Lumbar disk herniation with radiculopathy. PLAN: Dr. Luu met with the patient, reviewed her imaging and did right L3 diskectomy. He explained to the patient the risks, benefits, and alternatives to the procedure. The patient expressed understanding and elected to move forward with surgery as discussed. I do believe the patient is mentally competent and capable of making medical decisions for herself. We will move forward with surgery as planned. Job ID: [id number]
[2020-01-26] MEDS ORDERED: Fentanyl 100 MCG/2 ML VIAL ONE (07:17)
[2020-01-26] MEDS ORDERED: Midazolam HCl 2 mg/2 ml Vial ONE (07:17)
[2020-01-26] MEDS ORDERED: Scopolamine 1.5 mg/72 hour Patch ONE (07:35)
[2020-01-26] MEDS ORDERED: Ketamine 50 MG/ML (10ML VIAL) ONE (07:45)
[2020-01-26] MEDS ORDERED: Ondansetron PF 4 MG/2 ML Vial ONE ×3 (09:11→11:43)
--- NOTE | 2020-01-26 09:36 | OP ---
DATE OF PROCEDURE: 01/26/2020 PHYSICAL THERAPY TEACHER: Fransisco Manzano PA-C INDICATION: Pain. DIAGNOSIS: Lumbar radiculopathy. PROCEDURES PERFORMED: Reoperation of right L3 facetectomy, right L3 foraminotomy, right L3 diskectomy. ANESTHESIA: General. DESCRIPTION OF PROCEDURE: The patient was brought into the operating room and placed under general anesthesia. She was flipped from the supine to prone position on the operating room table. A linear incision was planned at the location of a prior incision. After prepping and draping and after an appropriate preoperative pause, the incision was created. The soft tissues were swept right of midline. A self-retaining retractor was placed in the wound for optimal exposure. After confirming the appropriate level with C-arm fluoroscopy, a bone defect was identified at the L3 segment. The laminectomy was extended laterally to encompass most of the facet joint at that level. The L4 pedicle was identified as was the disk and a substantial amount of scar tissue just above the pedicle. Some of the disk material was removed as was some disk material. Some of it was densely adherent to the exiting L3 nerve root and thecal sac. The ligament was identified and further removed in order to decompress the lateral recesses in order to give the L4 nerve root more room. After completing the decompression, the wound was irrigated. Hemostasis was maintained throughout. The wound was then closed in anatomic layers, and a pressure dressing was applied. There were no known procedural complications. Job ID: [id number]
[2020-01-26] MEDS ORDERED: HYDROcodone/Acetaminophen 5/325 mg Tablet ONE (11:26)
[2020-01-26] MEDS ORDERED: PROPOFOL 200 MG/20 ML VIAL ONE (11:43)
[2020-01-26] MEDS ORDERED: Glycopyrrolate 0.2 MG/ML 5 ML SYRINGE ONE (11:43)
[2020-01-26] MEDS ORDERED: Ketorolac Tromethamine 30 MG/ML VIAL ONE (11:43)
[2020-01-26] MEDS ORDERED: Dexamethasone 20 MG/5 ML VIAL ONE (11:43)
[2020-01-26] MEDS ORDERED: Rocuronium Bromide 10 MG/ML (10ML VIAL) ONE (11:43)
[2020-01-26] MEDS ORDERED: PHENYLEPHRINE-NS 100 MCG/ML 10 ML SYRINGE ONE (11:43)
[2020-01-26] MEDS ORDERED: diphenhydrAMINE 50 MG/ML VIAL ONE (11:43)
[2020-01-26] MEDS ORDERED: EPHEDRINE 25 MG/5 ML SYRINGE ONE (11:43)
== END 2020-01-26 12:16 | disposition home or self-care (01) ==
LOC: SDC 06:15
PROVIDERS: ATTEND Neurological Surgery
PROC: 01NB0ZZ Release Lumbar Nerve, Open Approach (ICD-10-PCS; principal; 2020-01-26)
PROC: 0SB20ZZ Excision of Lumbar Vertebral Disc, Open Approach (ICD-10-PCS; 2020-01-26)
DX: M51.16 Intervertebral disc disorders with radiculopathy, lumbar region (principal); E78.5 Hyperlipidemia, unspecified; I10 Essential (primary) hypertension; M16.11 Unilateral primary osteoarthritis, right hip; I25.10 Atherosclerotic heart disease of native coronary artery without angina pectoris; E11.9 Type 2 diabetes mellitus without complications; Z87.891 Personal history of nicotine dependence; Z79.01 Long term (current) use of anticoagulants; Z79.84 Long term (current) use of oral hypoglycemic drugs; Z79.899 Other long term (current) drug therapy; Z88.5 Allergy status to narcotic agent
CPT/HCPCS: 76000; J0171; J0690; J1100; J1200; J1885; J2250; J2405; J2704; J3010; S0020

== ENCOUNTER 2020-01-30 09:00 | Outpatient (CLI) | payer MEDICARE, OTHER ==
--- NOTE | 2020-01-30 10:02 | MMO ---
Bilateral MAMMO Bilat Screen [facility]. CLINICAL HISTORY: Patient is 74 years old and is seen for screening. The patient has no family history of breast cancer. The patient has no personal history of cancer. VIEWS: The views performed were: bilateral craniocaudal with tomosynthesis and bilateral mediolateral oblique with tomosynthesis. FILMS COMPARED: The present examination has been compared to prior imaging studies performed at [facility] on 11/15/2010, 11/17/2010, 01/25/2018 and 01/28/2019. This study has been interpreted with the assistance of computer-aided detection. MAMMOGRAM FINDINGS: There are scattered fibroglandular densities. Benign calcifications are noted bilaterally. There are no suspicious masses, suspicious calcifications, or new areas of architectural distortion. IMPRESSION: THERE IS NO MAMMOGRAPHIC EVIDENCE OF MALIGNANCY. A ROUTINE FOLLOW-UP MAMMOGRAM IN 1 YEAR IS RECOMMENDED. THE RESULTS OF THIS EXAM WERE SENT TO THE PATIENT. ACR BI-RADS Category 2 - Benign finding MAMMOGRAPHY NOTE: 1. A negative mammogram report should not delay a biopsy if a dominant of clinically suspicious mass is present. 2. Approximately 10% to 15% of breast cancers are not detected by mammography. 3. Adenosis and dense breasts may obscure an underlying neoplasm. Reported by: DESTINI YUSUF MD Electonically Signed: [id number]
== END 2020-01-30 09:01 | disposition home or self-care (01) ==
LOC: BICMAMMO 09:00
PROVIDERS: ATTEND Family Medicine
DX: Z12.31 Encounter for screening mammogram for malignant neoplasm of breast (principal)
CPT/HCPCS: 77063; 77067

== ENCOUNTER 2020-04-19 08:10 | Outpatient (CLI) | payer MEDICARE, OTHER ==
[2020-04-19] MEDS ORDERED: Magnevist 469MG/ML 20 ML VIAL ONE (09:02)
--- NOTE | 2020-04-19 10:22 | MRI ---
MRI LUMBAR SPINE WITH AND WITHOUT CONTRAST: DATE: 04/19/2020 HISTORY: 75-year-old female with low back pain at right lumbar radiculopathy. Indeterminate lesions found on CT of 03/19/2020. Further investigation. COMPARISON: 03/19/2020 CT TECHNIQUE: Multiple sequences obtained in axial and sagittal planes, pre and post IV injection of gadolinium-bas ed contrast agent. FINDINGS: There are 5 lumbar-type vertebrae. Vertebral body heights are maintained. Mild disc space narrowing at L2-3. Moderate disc space narrowing at L3-4. No significant disc space n arrowing at other levels. No major spondylolisthesis, and no spondylolysis. No scoliosis. Conus medullaris terminates at L2. T12-L1:Mild disc bulge. No central or significant neural foraminal stenosis. Large hemangioma of bone of L1 vertebral body. L1-2:Minimal disc bulge. Otherwise negative. L2-3:Mild disc bulge. Mild ligamentum flavum thickening. No significant central or significant neural foraminal stenosis. L3-4:Right hemilaminectomy and right facetectomy. There is enhancing soft tissue material filling the laminectomy and facetectomy defect, and extending into the right neural foramen. Although there is no bony neural foraminal stenosis, this enhancing material, representing postsurgical scar or postsur gical granulation tissue, causes moderate to severe right neural foraminal stenosis, surrounding the inferior 180 degrees of the exiting right L3 nerve root, and displacing that nerve root superiorl y within the neural foramen. There has been surgical resection of the right lateral component of the disc. The scar tissue slightly effaces the right lateral edge of the thecal sac. No high-grade th ecal sac stenosis. Moderate left neural foraminal stenosis due to left lateral and far lateral components of disc bulge.. L4-5:Bilateral mild to moderate facet DJD with moderate ligamentum flavum thickening. No high-grade c entral spinal canal stenosis. Mild to moderate right and moderate left neural foraminal stenosis. Minimal disc bulge. There is no specific enhancing lesion that corresponds to the tiny 0.1 cm focal c alcification at the posterior midline edge of the thecal sac on the noncontrast images. It could represent a tiny calcification within the normally enhancing, normal caliber filum terminale. There i s no evidence of meningioma. L5-S1:Mild bilateral facet DJD. No central spinal canal stenosis. Mild bilateral neural foraminal mathieu nosis. IMPRESSION: 1) status post right hemilaminectomy and right facetectomy at L3-4, with postsurgical enhancing scar tissue or postsurgical enhancing granulation tissue, fills the surgical osseous defects, and causes high-grade right neural foraminal stenosis, impinging on the exiting right L3 nerve root. 2) Tiny calcification at the posterior midline aspect of the thecal sac at the L4-5 level is not a me ningioma. It may be a tiny nonspecific calcification of the filum terminale. 3) no high-grade central spinal canal stenosis at any level. 4) some neural foraminal stenosis as described above.
== END 2020-04-19 08:11 | disposition home or self-care (01) ==
LOC: BICMRI 08:10
PROVIDERS: ATTEND Neurological Surgery
DX: M54.16 Radiculopathy, lumbar region (principal); M54.5 Low back pain; M48.061 Spinal stenosis, lumbar region without neurogenic claudication; M48.07 Spinal stenosis, lumbosacral region; Z98.890 Other specified postprocedural states
CPT/HCPCS: 72158; 82565; A9579

== ENCOUNTER 2021-02-01 08:47 | Outpatient (CLI) | payer MEDICARE | END 2021-02-01 08:48 | disposition home or self-care (01) | LOC: BICMAMMO 08:47 | PROVIDERS: ATTEND Family Medicine | DX: Z12.31 Encounter for screening mammogram for malignant neoplasm of breast (principal) | CPT/HCPCS: 77063; 77067 ==

== ENCOUNTER 2022-01-30 14:13 | Outpatient (CLI) | payer MEDICARE | END 2022-01-30 14:14 | disposition home or self-care (01) | LOC: BICMAMMO 14:13 | PROVIDERS: ATTEND Family Medicine | DX: Z12.31 Encounter for screening mammogram for malignant neoplasm of breast (principal) | CPT/HCPCS: 77063; 77067 ==

== ENCOUNTER 2022-11-24 15:15 | Outpatient (CLI) | payer MEDICARE | END 2022-11-24 15:16 | disposition home or self-care (01) | LOC: BICRAD 15:15 | PROVIDERS: ATTEND Family Medicine | DX: M25.512 Pain in left shoulder (principal); M19.012 Primary osteoarthritis, left shoulder ==

== ENCOUNTER 2023-02-15 14:21 | Outpatient (CLI) | payer MEDICARE | END 2023-02-15 14:22 | disposition home or self-care (01) | LOC: BICMAMMO 14:21 | PROVIDERS: ATTEND Family Medicine | DX: Z12.31 Encounter for screening mammogram for malignant neoplasm of breast (principal) | CPT/HCPCS: 77063; 77067 ==

== ENCOUNTER 2023-02-28 13:22 | Outpatient (CLI) | payer MEDICARE | END 2023-02-28 13:23 | disposition home or self-care (01) | LOC: BICMRI 13:22 | PROVIDERS: ATTEND Orthopaedic Surgery | DX: S46.012A Strain of muscle(s) and tendon(s) of the rotator cuff of left shoulder, initial encounter (principal); S43.402A Unspecified sprain of left shoulder joint, initial encounter ==

== ENCOUNTER 2023-08-07 15:51 | Emergency (ER) | payer MEDICARE, OTHER ==
[2023-08-07] MEDS ORDERED: Acetaminophen 325 MG TAB ONE (16:20)
== END 2023-08-07 19:36 | disposition home or self-care (01) ==
LOC: ERS 15:51
DX: S63.501A Unspecified sprain of right wrist, initial encounter (principal); S00.81XA Abrasion of other part of head, initial encounter; I10 Essential (primary) hypertension; E78.5 Hyperlipidemia, unspecified; W17.89XA Other fall from one level to another, initial encounter; Z79.82 Long term (current) use of aspirin; Z79.899 Other long term (current) drug therapy
CPT/HCPCS: 29105

== ENCOUNTER 2023-09-20 11:20 | Outpatient (CLI) | payer MEDICARE | END 2023-09-20 11:21 | disposition home or self-care (01) | LOC: SCSMRI 11:20 | PROVIDERS: ATTEND Nurse Practitioner Family | DX: R42 Dizziness and giddiness (principal); R29.6 Repeated falls; I67.89 Other cerebrovascular disease | CPT/HCPCS: 70551 ==

== ENCOUNTER 2024-02-18 13:36 | Outpatient (CLI) | payer MEDICARE | END 2024-02-18 13:37 | disposition home or self-care (01) | LOC: BICMAMMO 13:36 | PROVIDERS: ATTEND Family Medicine | DX: Z12.31 Encounter for screening mammogram for malignant neoplasm of breast (principal) | CPT/HCPCS: 77063; 77067 ==

== ENCOUNTER 2024-06-10 11:24 | Inpatient (IN) | payer MEDICARE ==
[2024-06-10] MEDS ORDERED: Acetaminophen 325 MG TAB PO PRN (14:19)
[2024-06-10] MEDS ORDERED: Ipratropium/Albuterol 3 ML NEB NEB PRN (14:24)
[2024-06-10] MEDS ORDERED: Dextrose 50% Abboject 50 ML SYRINGE SLOW IVP PRN (14:33)
[2024-06-10] MEDS ORDERED: Dextrose 5% in Water 1,000 ML IV PRN (14:33)
[2024-06-10] MEDS ORDERED: Glucagon 1 MG/ML KIT IM PRN (14:33)
[2024-06-10 14:49] LABS: Hematocrit 25.4 % (36.0-47.0); Hemoglobin 7.6 g/dL (12.0-16.0); Mean Corpuscular HGB CONC 29.9 g/dL (32.0-36.0); Mean Corpuscular Volume 83.6 fL (78.0-98.0); Mean Platelet Volume 9.9 fL (7.4-10.4); Platelet Count 270 10x3/uL (130-400); RBC Distribution Width 15.5 % (11.5-14.5); Red Blood Cell (RBC) Count 3.04 mill/uL (4.20-5.40)
[2024-06-10 15:14] LABS: Troponin I Less than 0.010 ng/mL (< 0.028)
[2024-06-10 15:59] LABS: Iron 12 ug/dL (50-170); Iron Binding Capacity, Total 449 mcg/dL (265-497)
[2024-06-10] MEDS: cefTRIAXone\\ROCEPHIN 1 GM in Sodium Chloride 0.9% 100 ML IVPB SCH (16:30)
[2024-06-10] MEDS: Azithromycin 500 MG in Sodium Chloride 0.9% 250 ML 250 ML IVPB SCH (17:37)
[2024-06-10] MEDS: Ipratropium/Albuterol 3 ML NEB NEB SCH (19:15)
[2024-06-10] MEDS: Pantoprazole 40 MG VIAL IVP SCH (20:05)
[2024-06-10] MEDS: Senokot S 8.6-50 MG TAB PO PRN (20:05)
[2024-06-10] MEDS: Gabapentin 300 MG CAP PO PRN (20:11)
[2024-06-11 04:43] LABS: #Basophils Less than 0.03 10x3/uL (0.0-0.2); #Eosinophils Less than 0.03 10x3/uL (0.0-0.7); %Lymphocytes 7.2 % (21.0-51.0); %Monocytes 5.4 % (0.0-10.0); %Neutrophils 86.8 % (42.0-75.0); Hematocrit 27.8 % (36.0-47.0); Hemoglobin 8.3 g/dL (12.0-16.0); Mean Corpuscular HGB CONC 29.9 g/dL (32.0-36.0); Mean Corpuscular Hemoglobin 25.1 pg (27.0-31.0); Mean Platelet Volume 10.1 fL (7.4-10.4); Platelet Count 284 10x3/uL (130-400); RBC Distribution Width 15.2 % (11.5-14.5); Red Blood Cell (RBC) Count 3.31 mill/uL (4.20-5.40)
[2024-06-11 05:37] LABS: Anion Gap 14 mmol/L (10-20); BUN (Urea Nitrogen) 9 mg/dL (9.8-20.1); Calc. Creatinine Clearance 77 mL/min (70-130); Calcium 8.3 mg/dL (7.8-10.44); Carbon Dioxide 21 mmol/L (23-31); Chloride 107 mmol/L (98-107); Estimated GFR 78; Glucose 164 mg/dL (83-110); Potassium 4.3 mmol/L (3.5-5.1); Sodium 138 mmol/L (136-145)
[2024-06-11] MEDS: Insulin Lispro 100 UNIT/ML 10 ML VIAL SC PRN (06:07)
[2024-06-12 09:07] LABS: #Basophils 0.05 10x3/uL (0.0-0.2); %Basophils 0.6 % (0.0-1.0); %Eosinophils 1.6 % (0.0-10.0); %Lymphocytes 21.1 % (21.0-51.0); %Monocytes 6.5 % (0.0-10.0); %Neutrophils 69.9 % (42.0-75.0); Hematocrit 31.1 % (36.0-47.0); Hemoglobin 9.2 g/dL (12.0-16.0); Mean Corpuscular HGB CONC 29.6 g/dL (32.0-36.0); Mean Corpuscular Hemoglobin 25.2 pg (27.0-31.0); Mean Corpuscular Volume 85.2 fL (78.0-98.0); Mean Platelet Volume 9.6 fL (7.4-10.4); Platelet Count 324 10x3/uL (130-400); RBC Distribution Width 15.7 % (11.5-14.5); Red Blood Cell (RBC) Count 3.65 mill/uL (4.20-5.40)
[2024-06-12] MEDS ORDERED: fentaNYL 50 mcg/mL 1 mL Vial ONE (11:50)
[2024-06-12] MEDS ORDERED: PROPOFOL 20 ML ONE (11:51)
[2024-06-12] MEDS ORDERED: PHENYLEPHRINE-NS 100 MCG/ML 10 ML SYRINGE ONE (12:42)
[2024-06-12 14:35] VITALS: BMI 31.8
[2024-06-12] MEDS: GoLYTELY 4,000 ml Bottle PO SCH (17:59)
[2024-06-13] MEDS ORDERED: Ondansetron ODT 4 MG TAB PO PRN (00:09)
[2024-06-13] MEDS: Ondansetron PF 4 MG/2 ML Vial IVP PRN (00:18)
[2024-06-13 08:05] VITALS: BP 91/65; TEMP 98.5
[2024-06-13] MEDS ORDERED: PROPOFOL 20 ML ONE (10:55)
[2024-06-13] MEDS ORDERED: Lidocaine 2% PF 5 ML VIAL ONE (10:57)
== END 2024-06-13 17:38 | disposition home or self-care (01) | DRG 379 ==
LOC: OBS 12:33 → OBSVTOIN 14:19
PROVIDERS: ADMIT Internal Medicine; ATTEND Internal Medicine
PROC: 30233N1 Transfusion of Nonautologous Red Blood Cells into Peripheral Vein, Percutaneous Approach (ICD-10-PCS; 2024-06-10)
PROC: 0DJ08ZZ Inspection of Upper Intestinal Tract, Via Natural or Artificial Opening Endoscopic (ICD-10-PCS; 2024-06-12)
PROC: 0DBL8ZZ Excision of Transverse Colon, Via Natural or Artificial Opening Endoscopic (ICD-10-PCS; principal; 2024-06-13)
PROC: 0DBH8ZZ Excision of Cecum, Via Natural or Artificial Opening Endoscopic (ICD-10-PCS; 2024-06-13)
PROC: 0DBM8ZZ Excision of Descending Colon, Via Natural or Artificial Opening Endoscopic (ICD-10-PCS; 2024-06-13)
DX: K92.1 Melena (principal); D50.9 Iron deficiency anemia, unspecified; K63.5 Polyp of colon; R73.03 Prediabetes; Z88.8 Allergy status to other drugs, medicaments and biological substances; Z79.01 Long term (current) use of anticoagulants; Z79.82 Long term (current) use of aspirin; E78.5 Hyperlipidemia, unspecified; I10 Essential (primary) hypertension; Z90.89 Acquired absence of other organs; Z90.49 Acquired absence of other specified parts of digestive tract; Z90.710 Acquired absence of both cervix and uterus; Z87.891 Personal history of nicotine dependence; I48.0 Paroxysmal atrial fibrillation; Z79.4 Long term (current) use of insulin; Z79.899 Other long term (current) drug therapy; K31.7 Polyp of stomach and duodenum
CPT/HCPCS: 36415; 36416; 36430; 71045; 80048; 82274; 82728; 83540; 83550; 84484; 85025; 85027; 85046; 86850; 86900; 86901; 88305; 88341; 88342; 94640; J0456; J0696; J1815; J2405; J2470; J2704; J3010; J7050; J7620; P9016

== ENCOUNTER 2024-08-07 10:00 | Outpatient (CLI) | payer MEDICARE, OTHER ==
[2024-08-07 16:01] LABS: #Basophils 0.08 10x3/uL (0.0-0.2); %Basophils 1.1 % (0.0-1.0); %Eosinophils 2.5 % (0.0-10.0); %Lymphocytes 22.5 % (21.0-51.0); %Monocytes 5.8 % (0.0-10.0); %Neutrophils 67.6 % (42.0-75.0); Hematocrit 33.7 % (36.0-47.0); Mean Corpuscular HGB CONC 32.6 g/dL (32.0-36.0); Mean Corpuscular Hemoglobin 29.4 pg (27.0-31.0); Mean Corpuscular Volume 90.1 fL (78.0-98.0); Mean Platelet Volume 9.2 fL (7.4-10.4); Platelet Count 263 10x3/uL (130-400); RBC Distribution Width 15.9 % (11.5-14.5); Red Blood Cell (RBC) Count 3.74 mill/uL (4.20-5.40)
[2024-08-07 16:20] LABS: ALT (SGPT) 8 U/L (8-55); AST (SGOT) 13 U/L (5-34); Albumin 3.9 g/dL (3.4-4.8); Alkaline Phosphatase 76 U/L (40-110); Anion Gap 11 mmol/L (10-20); BUN (Urea Nitrogen) 13 mg/dL (9.8-20.1); Bilirubin, Total 0.7 mg/dL (0.2-1.2); Calc. Creatinine Clearance 0 mL/min (70-130); Calcium 8.7 mg/dL (7.8-10.44); Carbon Dioxide 25 mmol/L (23-31); Chloride 105 mmol/L (98-107); Estimated GFR 89; Globulin 3.3 g/dL (2.4-3.5); Glucose 173 mg/dL (83-110); Protein, Total 7.2 g/dL (5.8-8.1); Sodium 137 mmol/L (136-145)
[2024-08-07 16:28] LABS: INR-International Normal Ratio 1.3; PTT 30.1 sec (22.9-36.1); Prothrombin Time 15.8 sec (12.0-14.7)
== END 2024-08-07 15:00 | disposition home or self-care (01) ==
LOC: LABBT 10:00
PROVIDERS: ATTEND Internal Medicine Cardiovascular Disease
DX: Z01.818 Encounter for other preprocedural examination (principal); I48.0 Paroxysmal atrial fibrillation; K92.2 Gastrointestinal hemorrhage, unspecified; D64.9 Anemia, unspecified
CPT/HCPCS: 80053; 85025; 85610; 85730; 86850; 86900; 86901; 93005; 93010